=== PATIENT | female | born 1955 | race Caucasian/White ===

== ENCOUNTER 2022-06-15 09:27 | Inpatient (IN) | payer OTHER ==
[2022-06-12 17:52] VITALS: BMI 28.7
[2022-06-15] MEDS ORDERED: BUPIVACAINE LIPOSOME/PF (EXPAREL) 266 MG/20 ML VIAL ONE (11:30)
[2022-06-15] MEDS ORDERED: MIDAZOLAM HCL 2 MG/2 ML SINGLE DOSE VIAL ONE ×3 (11:30→12:59)
[2022-06-15] MEDS ORDERED: BUPIVACAINE HCL/PF 0.5% (5MG/ML) 10 ML VIAL ONE ×2 (11:31→11:45)
[2022-06-15] MEDS ORDERED: ceFAZolin SODIUM 1 GM VIAL ONE (12:23)
[2022-06-15] MEDS ORDERED: ONDANSETRON 4 MG/2 ML VIAL ONE (12:23)
[2022-06-15] MEDS ORDERED: VANCOMYCIN 1,000 MG VIAL (RESTRICTED TO ID ONLY) ONE ×2 (12:23→12:50)
[2022-06-15] MEDS ORDERED: DEXAMETHASONE SOD PHOSPHATE 4 MG/1 ML VIAL ONE (12:23)
[2022-06-15] MEDS ORDERED: TRANEXAMIC ACID 1000 MG/10 ML VIAL ONE (12:23)
[2022-06-15] MEDS ORDERED: CEFAZOLIN 2 GM in DEXTROSE 5%-WATER - 50 ML IVPB ONE (12:30)
[2022-06-15] MEDS ORDERED: TRANEXAMIC ACID 1000 MG/10 ML VIAL IVPUSH ONE (12:30)
[2022-06-15] MEDS ORDERED: PROPOFOL 20 ML ONE (12:35)
[2022-06-15] MEDS ORDERED: BUPIVICAINE 0.25%/MORPH PF/KETOROLAC - 51ML DISP.SYRINGE IA ONE (13:35)
[2022-06-15] MEDS ORDERED: ONDANSETRON 4 MG/2 ML VIAL IVPUSH PRN ×2 (13:58→14:35)
[2022-06-15] MEDS ORDERED: MAG HYDROX/AL HYDROX/SIMETH 30 ML UNIT-DOSE CUP PO PRN (13:58)
[2022-06-15] MEDS ORDERED: LACTATED RINGERS SOLUTION 1,000 ML IV SCH ×2 (14:00→14:45)
[2022-06-15] MEDS ORDERED: ACETAMINOPHEN 1000 MG/100 ML BAG IVPB ONE (14:36)
[2022-06-15] MEDS ORDERED: ACETAMINOPHEN INJECTION 100 ML IVPB ONE (15:00)
[2022-06-15] MEDS: SENNOSIDES/DOCUSATE COMBO (SENNA PLUS) TABLET (UD) PO SCH (21:23)
[2022-06-15] MEDS: oxyCODONE HCL 5 MG TABLET PO PRN (21:23)
[2022-06-15] MEDS: GABAPENTIN 300 MG CAPSULE PO SCH (21:24)
[2022-06-15] MEDS: CEFAZOLIN SODIUM 2 GM in DEXTROSE 5%-WATER 100 ML IVPB SCH (21:24)
[2022-06-15] MEDS ORDERED: ZOLPIDEM TARTRATE 5 MG TABLET PO PRN (22:00)
[2022-06-16] MEDS: CEFAZOLIN SODIUM 2 GM in DEXTROSE 5%-WATER 100 ML IVPB SCH ×2 (03:37→12:41)
[2022-06-16 08:15] LABS: CALCIUM 8.8 mg/dl (8.5-10); CREATININE 0.6 mg/dl (0.55-1.3)
[2022-06-16 08:16] LABS: HEMATOCRIT 33.6 % (32.4-45.2); HEMOGLOBIN 11.8 G/dL (10.7-15.3); MCH 33.4 pg (25.7-33.7); MCHC 35.2 g/dl (32.0-36.0); MEAN CELL VOLUME 94.8 fl (80-96); MEAN PLT VOLUME 7.9 fl (7.5-11.1); PLATELET COUNT 204.8 10^3/uL (134-434); RBC 3.54 10^6/uL (3.60-5.2); WHITE BLOOD COUNT 14.3 10^3/uL (4.0-10.8)
[2022-06-16] MEDS: ASPIRIN 325 MG TABLET PO SCH (09:18)
[2022-06-16] MEDS: oxyCODONE HCL 5 MG TABLET PO PRN ×3 (09:18→19:56)
[2022-06-16] MEDS: SENNOSIDES/DOCUSATE COMBO (SENNA PLUS) TABLET (UD) PO SCH ×2 (09:18→21:23)
[2022-06-16] MEDS: PANTOPRAZOLE 40 MG TABLET PO SCH (09:18)
[2022-06-16] MEDS: GABAPENTIN 300 MG CAPSULE PO SCH ×2 (09:18→21:23)
[2022-06-16] MEDS: MULTIVITAMINS (DAILY MVI) TABLET (FP) PO SCH (09:18)
[2022-06-16] MEDS: PATIENT'S OWN MEDICATION (NON-FORMULARY) (Famotidine 40 MG Tablet) PO SCH ×2 (12:42→15:44)
[2022-06-16 19:17] VITALS: RESP 18
[2022-06-17] MEDS: oxyCODONE HCL 5 MG TABLET PO PRN (08:08)
[2022-06-17 08:22] LABS: HEMOGLOBIN 11.8 G/dL (10.7-15.3); MCH 33.7 pg (25.7-33.7); MCHC 35.6 g/dl (32.0-36.0); MEAN CELL VOLUME 94.5 fl (80-96); MEAN PLT VOLUME 8.3 fl (7.5-11.1); PLATELET COUNT 203.4 10^3/uL (134-434); RBC 3.49 10^6/uL (3.60-5.2); RDW 13.1 % (11.6-15.6); WHITE BLOOD COUNT 11.9 10^3/uL (4.0-10.8)
[2022-06-17 09:41] VITALS: BP 105/67; PULSE 88; TEMP 98.7
[2022-06-17] MEDS: PANTOPRAZOLE 40 MG TABLET PO SCH (09:42)
[2022-06-17] MEDS: MULTIVITAMINS (DAILY MVI) TABLET (FP) PO SCH (09:42)
[2022-06-17] MEDS: GABAPENTIN 300 MG CAPSULE PO SCH (09:42)
[2022-06-17] MEDS: ASPIRIN 325 MG TABLET PO SCH (09:42)
[2022-06-17] MEDS: SENNOSIDES/DOCUSATE COMBO (SENNA PLUS) TABLET (UD) PO SCH (09:43)
== END 2022-06-17 12:36 | disposition home or self-care (01) | DRG 302 ==
LOC: FM/S 09:27
PROVIDERS: ADMIT Orthopaedic Surgery Sports Medicine; ATTEND Orthopaedic Surgery Sports Medicine
PROC: 0SRC0J9 Replacement of Right Knee Joint with Synthetic Substitute, Cemented, Open Approach (ICD-10-PCS; principal; 2022-06-15 12:45)
DX: M17.11 Unilateral primary osteoarthritis, right knee (principal); I10 Essential (primary) hypertension; K21.9 Gastro-esophageal reflux disease without esophagitis; E78.5 Hyperlipidemia, unspecified; M81.0 Age-related osteoporosis without current pathological fracture; F32.A Depression, unspecified; G47.00 Insomnia, unspecified; G62.9 Polyneuropathy, unspecified
CPT/HCPCS: 36415; 73560-TC-RT-FY; 80048; 83036; 85027; 88305-TC; 88311-TC; 94760; 97010-GP; 97116-GP; 97163-GP; C1889

== ENCOUNTER 2024-09-17 14:09 | Emergency (ER) | payer OTHER ==
[2024-09-17 14:14] VITALS: BP 160/92; PULSE 86; RESP 18; TEMP 97.6; BMI 32.3
[2024-09-17] MEDS ORDERED: LIDOCAINE 4% PATCH TP ONE (16:08)
[2024-09-17] MEDS ORDERED: KETOROLAC TROMETHAMINE 30 MG/1 ML VIAL ONE (16:08)
[2024-09-17] MEDS: KETOROLAC TROMETHAMINE 30 MG/1 ML VIAL IM ONE (16:16)
[2024-09-17] MEDS: LIDOCAINE 5% TOPICAL PATCH TP ONE (16:16)
[2024-09-17] MEDS ORDERED: LIDOCAINE PATCH REMOVAL MC ONE (22:00)
== END 2024-09-17 17:31 | disposition home or self-care (01) ==
LOC: JER 14:09
PROC: 3E0133Z Introduction of Anti-inflammatory into Subcutaneous Tissue, Percutaneous Approach (ICD-10-PCS; principal; 2024-09-17)
DX: M54.2 Cervicalgia (principal)
CPT/HCPCS: 93005; 93010; 99284-25